=== PATIENT | male | born 1950 | race Caucasian/White ===

== ENCOUNTER → 2017-12-27 07:22 | Outpatient (CLI) | payer MEDICARE, BC, SELFPAY ==
[2017-12-27 08:57] LABS: Add Manual Diff / Slide Review NO; Basophils Percent Auto 0.6 % (0-2); Eosinophils Percent Auto 1.6 % (2-4); Hematocrit 45.7 % (41-53); Hemoglobin 15.9 g/dL (13.5-17.5); Lymphocytes Percent Auto 33.6 % (25-40); Mean Corpuscular HGB Conc 34.7 % (30-36); Mean Corpuscular Hemoglobin 31.5 PG (26-34); Mean Corpuscular Volume 90.7 fL (80-100); Monocytes Percent Auto 8.2 % (3-14); Neutrophils Absolute Auto 3500 /uL (3000-5900); Platelet Count 205 X10^3/uL (150-400); Red Blood Cell Count 5.04 X10^6/uL (4.5-5.9); Red Cell Distribution Width 13.1 % (11.6-14.8); White Blood Cell Count 6.3 X10^3/uL (4.5-11.0)
[2017-12-27 09:27] LABS: Hemoglobin A1C% w Est Avg Glu 5.3 % (4.0-6.0)
[2017-12-27 09:34] LABS: Cholesterol 191 mg/dL (140-199); HDL Cholesterol 33 mg/dL (40-60); LDL Cholesterol Calculated 137 mg/dL (<100); Triglycerides 103 mg/dL (35-150)
[2017-12-27 10:06] LABS: Thyroid Stimulating Hormone 5.42 uIU/mL (0.47-4.68)
== END ==
PROVIDERS: PCP Family Medicine; Visit Provider Family Medicine
DX: E78.2 Mixed hyperlipidemia (principal); I10 Essential (primary) hypertension; Z13.1 Encounter for screening for diabetes mellitus; E11.22 Type 2 diabetes mellitus with diabetic chronic kidney disease
CPT/HCPCS: 36415; 80061; 83036; 84443; 85025

== ENCOUNTER → 2018-02-13 11:40 | Outpatient (CLI) | payer MEDICARE, BC, SELFPAY ==
[2018-02-13 13:30] LABS: Blood Urea Nitrogen 16 mg/dL (9-20); Calcium 9.1 mg/dL (8.4-10.2); Carbon Dioxide 32 mmol/L (22-32); Chloride 101 mmol/L (98-107); Estimated Glomerular Filt Rate > 60.0 mL/min (>60); Glucose 82 mg/dL (80-110); HEMOLYSIS < 15 (0-50); Potassium 4.7 mmol/L (3.4-5.1); Sodium 143 mmol/L (137-145)
== END ==
PROVIDERS: PCP Family Medicine; Visit Provider Family Medicine
DX: I10 Essential (primary) hypertension (principal)
CPT/HCPCS: 36415; 80048

== ENCOUNTER → 2019-05-17 07:00 | Outpatient (CLI) | payer MEDICARE, BC, SELFPAY ==
[2019-05-17 08:15] LABS: Add Manual Diff / Slide Review NO; Basophils Absolute Auto 0 /uL (0-100); Basophils Percent Auto 0.6 % (0-2); Eosinophils Absolute Auto 100 /uL (0-450); Hematocrit 44.8 % (41-53); Hemoglobin 15.3 g/dL (13.5-17.5); Lymphocytes Absolute Auto 2100 /uL (1100-4500); Lymphocytes Percent Auto 35.2 % (25-40); Mean Corpuscular HGB Conc 34.2 % (30-36); Mean Corpuscular Hemoglobin 31.5 PG (26-34); Mean Corpuscular Volume 92.1 fL (80-100); Monocytes Absolute Auto 500 /uL (0-900); Monocytes Percent Auto 8.5 % (3-14); Neutrophils Absolute Auto 3200 /uL (1500-7000); Neutrophils Percent Auto 53.7 % (50-75); Platelet Count 217 X10^3/uL (150-400); Red Blood Cell Count 4.87 X10^6/uL (4.5-5.9); Red Cell Distribution Width 12.7 % (11.6-14.8)
[2019-05-17 08:33] LABS: Alanine Aminotransferase 22 IU/L (<50); Albumin 3.9 g/dL (3.5-5.0); Albumin Globulin Ratio 1.1 (1.0-2.8); Alkaline Phosphatase 62 U/L (38-126); Aspartate Aminotransferase 30 IU/L (17-59); BUN Creatinine Ratio 16.7 (6-22); Bilirubin Total 0.8 mg/dL (0.2-1.3); Blood Urea Nitrogen 15 mg/dL (9-20); Calcium 8.9 mg/dL (8.4-10.2); Carbon Dioxide 29 mmol/L (22-32); Chloride 103 mmol/L (98-107); Cholesterol 210 mg/dL (140-199); Estimated Glomerular Filt Rate > 60.0 mL/min (>60); Globulin 3.4 g/dL (1.7-4.1); Glucose 90 mg/dL (80-110); HDL Cholesterol 24 mg/dL (40-60); HEMOLYSIS < 15 (0-50); LDL Cholesterol Calculated 145 mg/dL (<100); Potassium 4.6 mmol/L (3.4-5.1); Sodium 140 mmol/L (137-145); Total Protein 7.3 g/dL (6.3-8.2); Triglycerides 207 mg/dL (35-150)
--- NOTE | 2019-05-17 08:49 | DI.RAD.S_ITS ---
PROCEDURE: XR LUMBAR SPINE MIN 4V INDICATIONS: left radiculopathy, stiffness TECHNIQUE: 5 views of the lumbar spine acquired. COMPARISON: None. FINDINGS: Bones: 5 nonrib-bearing vertebrae are present. There is normal bony alignment. No vertebral body compression fractures. No suspicious bony lesions. Multilevel disc degeneration, severe at L5-S1 level. Moderate L5-S1 facet joint arthropathy. No pars defects. Soft tissues: Overlying bowel gas pattern is normal. No suspicious soft tissue calcifications. Vascular calcifications indicate atherosclerosis. IMPRESSION: 1. Multilevel disc degeneration, severe at the L5-S1 level. 2. Moderate facet joint arthropathy at L5-S1 level. Dictated by: Robin Mosley [facility] Interpreted: Barrington Cedillo MD on 05/17/2019 at 9:47 Approved by: Barrington Cedillo M.D. on 05/17/2019 at 11:22
[2019-05-17 09:24] LABS: TSH w/ Reflex to FT4 3.95 uIU/mL (0.47-4.68)
[2019-05-20 14:25] LABS: Fecal Immunochemical Test NOT DETECTED (NOT DETECTED)
== END ==
PROVIDERS: PCP Family Medicine; Referring Provider Family Medicine; Visit Provider Family Medicine
DX: Z12.11 Encounter for screening for malignant neoplasm of colon (principal); M54.16 Radiculopathy, lumbar region; Z12.5 Encounter for screening for malignant neoplasm of prostate; R07.9 Chest pain, unspecified
CPT/HCPCS: 36415; 72110; 80053; 80061; 82274; 84443; 85025; G0103

== ENCOUNTER → 2019-06-07 07:07 | Outpatient (CLI) | payer MEDICARE, BC, SELFPAY ==
--- NOTE | 2019-06-07 08:15 | PM.TREADMILL ---
Cardiac Stress Test Report Referral & Results Date Patient Seen: 06/07/19 Time Patient Seen: 08:00 Requesting provider: Deysi Thompson Indication: Angina Rest ECG: Normal sinus rhythm Procedure Note: Today following both written and verbal informed consent, the patient was exercised according to a standard Markos protocol. The patient exercised for a total of 9 minutes 29 seconds achieving a maximum heart rate of 140 for. Patient's maximum systolic blood pressure was 185. This was an estimated 10.1 METs. Normal hemodynamic response to exercise. No signs or symptoms of angina. Excellent exercise capacity; JUVE-25% on active scale. Diffuse [address] deviations that resolved rapidly with rest. Impression: Intermediate probability for ischemia. Grant treadmill score of -5 is associated with a 90% 5 year survival rate from cardiovascular causes. Myocardial perfusion study may be indicated if there is ongoing clinical concern for ASCVD. Please note: Actual ECG tracings can be found in the PACS system.
== END ==
PROVIDERS: PCP Family Medicine; Referring Provider Family Medicine; Visit Provider Family Medicine
DX: I20.9 Angina pectoris, unspecified (principal); R07.9 Chest pain, unspecified
CPT/HCPCS: 93016; 93017; 93018

== ENCOUNTER → 2019-06-19 07:19 | Outpatient (CLI) | payer MEDICARE, BC, SELFPAY ==
--- NOTE | 2019-06-19 07:22 | DI.NM.S_ITS ---
PROCEDURE: NM PHIL PERF SPECT REST & STR Rest and exercise myocardial perfusion SPECT with gated imaging and ejection fraction RADIOPHARMACEUTICAL: 23.8 mCi Tc-99m sestamibi IV at rest and 27.0 mCi Tc-99m sestamibi IV at peak exercise. A two day-protocol was performed. INDICATIONS: abnormal stress test, family hx of bypass surgery TECHNIQUE: Radiopharmaceutical was injected at peak stress test, and also at rest. SPECT images were obtained. SPECT myocardial perfusion images were displayed in short axis, horizontal long axis, and vertical long axis views. Gated images were reviewed using [employer] software. COMPARISON: None. CARDIAC STRESS: A standard Markos treadmill exercise tolerance test was performed by the patient under the supervision of an attending staff. The patient exercised for 10 minutes and 1 seconds; functional aerobic impairment (JUVE) is -20%. Hemodynamic data: There is normal blood pressure and heart rate response to exercise stress. Patient achieved 108% of maximum predicted heart rate at peak exercise. Symptoms: Patient denied chest pain during exercise. EKG: No diagnostic EKG changes of ischemia; no ectopy. FINDINGS: Raw data: There is good myocardial labeling by radiotracer. No significant motion artifacts. Yiff-nz-gbwna ratio is 0.43 (normal is less than 0.38 for sestamibi tracer, and less than 0.50 for thallium tracer). Left ventricle function: Gated images demonstrate normal left ventricle wall thickening. No segmental wall motion abnormality. No transient ischemic dilation; TID is 0.89 (normal less than 1.3). The left ventricle resting end-diastolic volume is 95 mL. Left ventricle stress ejection fraction is 85%; normal values are above 45%. Myocardial perfusion: There is normal distribution of activity in the left and right ventricular myocardium. No fixed or reversible perfusion defects. IMPRESSION: Low risk, normal treadmill nuclear stress test. Elevated wvjh-np-nesru ratio at 0.43; consider echo to rule out significant valvular disease. 1) No perfusion evidence of ischemia or infarction. 2) Normal left ventricular size, wall motion, and systolic function (EF post stress 85%). 3) Elevated hiui-gm-tblvl ratio of 0.43. Consider Echo to rule out significant valvular disease. 4) No ECG evidence of ischemia or infarction. 5) No angina during the study. 6) Good exercise tolerance (12.8 METs, JUVE -20%). Target heart rate achieved. Appropriate hemodynamic response to exercise. 7) No prior nuclear stress test available for comparison. Dictated by: Samuel Healy MD on 06/20/2019 at 13:04 Approved by: Samuel Healy MD on 06/20/2019 at 13:09
--- NOTE | 2019-06-19 08:22 | PM.TREADMILL ---
Cardiac Stress Test Report Referral & Results Date Patient Seen: 06/19/19 Time Patient Seen: 08:00 Requesting provider: Deysi Thompson Indication: Abnormal stress test Rest ECG: Normal sinus rhythm Procedure Note: Today following both written and verbal informed consent the patient was exercised according to a standard Markos protocol patient went for a total of 10 minutes achieving a maximum heart rate of 163 maximum systolic blood pressure of 190 for. This is approximately 12.8 METs. Exercise was terminated at this point because of fatigue. Patient was also given Cardiolite through a previously started Hep-Lock IV by the nuclear chemistry technician approximately 1 minute prior to the cessation of exercise. Normal hemodynamic response to exercise. No signs or symptoms of angina. Diffuse ST deviations in multiple leads that resolved rapidly with rest. No change in rhythm. Excellent exercise capacity (JUVE-20%) and similar performance to last time. Impression: Similar testing to last time. Will await perfusion imaging. Please note: Actual ECG tracings can be found in the PACS system.
== END ==
PROVIDERS: PCP Family Medicine; Referring Provider Family Medicine; Visit Provider Family Medicine
DX: R94.39 Abnormal result of other cardiovascular function study (principal); R07.9 Chest pain, unspecified; I10 Essential (primary) hypertension; Z82.49 Family history of ischemic heart disease and other diseases of the circulatory system
CPT/HCPCS: 78452; 93016; 93017; 93018; A9502

== ENCOUNTER → 2019-07-04 13:39 | Outpatient (CLI) | payer MEDICARE, BC, SELFPAY ==
--- NOTE | 2019-07-04 13:40 | DI.ECHO.S_ITS ---
[place] [facility]---------+ [facility] +---------+ : : [address] : : : : [id number] : : : : Phone: [phone]+ Echocardiogram Report + + :Name: KELSI CHAMBERLAIN Study Date: 07/04/2019 Height: 68 in : :[facility] Weight: 185 lb : : Gender: Male BSA: 2.0 m2 : :: 1950 Age: 68 yrs BP: 138/84 mmHg: :Reason For Study: Chest pain : : Performed By: Roxanne López : :Referring: Machelle Aas : + + Interpretation Summary The left ventricle is normal in size and wall thickness. Left ventricular systolic function is normal without focal wall motion abnormalities. The ejection fraction is estimated to be 60-65%. Diastolic parameters suggest probable normal left ventricular diastolic function and normal filling pressures. The right ventricle is normal in size and function. The right ventricular systolic pressure is estimated to be at least 18 mmHg based on an estimated right atrial pressure of 3 mm Hg. Both atria are normal in size. There is mild mitral regurgitation. There is no other significant valvular heart disease. The aortic root is borderline dilated. The ascending aorta is normal in size. The aortic arch is mildly enlarged. Procedure: A two-dimensional transthoracic echocardiogram with color flow and Doppler was performed. The study quality was technically adequate. There is no prior echocardiogram noted for this patient. The patient was in sinus bradycardia with heart rates between 49-54 bpm during the exam. Left Ventricle: The left ventricle is normal in size and wall thickness. Proximal septal thickening is noted. A false chord is noted (normal variant). Left ventricular systolic function is normal without focal wall motion abnormalities. The ejection fraction is estimated to be 60-65%. Diastolic parameters suggest probable normal left ventricular diastolic function and normal filling pressures. Right Ventricle: The right ventricle is normal in size and function. Atria: Both atria are normal in size. There is no Doppler evidence for an interatrial shunt. Mitral Valve: The mitral valve is normal in structure and function. The mitral valve leaflets are mildly calcified. There is mild mitral regurgitation. Aortic Valve: The aortic valve is trileaflet. The aortic valve opens well. There is no aortic valve stenosis. There is trace aortic regurgitation. Tricuspid Valve: The tricuspid valve is normal in structure and function. There is mild tricuspid regurgitation. The right ventricular systolic pressure is estimated to be at least 18 mmHg based on an estimated right atrial pressure of 3 mm Hg. Pulmonic Valve: The pulmonic valve is normal in structure and function. There is trace pulmonic regurgitation. There is no other significant valvular heart disease. Great Vessels: The aortic root is borderline dilated. The ascending aorta is normal in size. The aortic arch is mildly enlarged. The IVC is of normal diameter and collapses greater than 50% with a sniff. This suggests a low right atrial pressure of 3 mm Hg. Pericardium/ Pleura There is no pericardial effusion. There is no pleural effusion. MMode/2D Measurements & Calculations LVIDd: 4.6 cm LVOT diam: 2.1 cm LVIDs: 2.9 cm Ao root diam: 3.7 cm FS: 38.2 % asc Aorta Diam: 3.1 cm EPSS: 0.37 cm Ao Arch Diam (Prox Trans): 3.5 cm IVSd: 1.0 cm LVPWd: 0.76 cm LV goyal. diameter/BSA (cm/m^2): 2.3 LV sys. diameter/BSA (cm/m^2): 1.4 LA A2 area: 17.4 cm2 RA long axis: 4.7 cm LA A4 area: 11.7 cm2 RA area: 11.8 cm2 LA length (vol): 4.3 cm RA vol: 25.3 ml LA vol: 40.1 ml RA : 12.8 ml/m2 LA vol index: 20.3 ml/m2 IVC diam: 2.0 cm RVD1 (basal): 3.9 cm TAPSE: 2.7 cm Doppler Measurements & Calculations Ao V2 max: 145.4 cm/sec LVOT Max Mauri: 146.0 cm/sec Ao V2 mean: 90.0 cm/sec LV V1 max P.5 mmHg Ao max P.5 mmHg LV V1 VTI: 32.0 cm Ao mean P.9 mmHg GLADYS(I,D): 3.7 cm2 Ao V2 VTI: 30.7 cm GLADYS(V,D): 3.5 cm2 sev ratio: 1.0 GLADYS indexed to BSA (cm^2/m^2): 1.8 MV E max mauri: 83.0 cm/sec TR max mauri: 183.7 cm/sec MV A max mauri: 77.1 cm/sec TR max P.4 mmHg MV E/A: 1.1 PA V2 max: 80.8 cm/sec Med Peak E' Mauri: 6.9 cm/sec PA V2 mean: 55.1 cm/sec E/E' med: 12.0 PA mean P.4 mmHg Lat Peak E' Mauri: 9.5 cm/sec PA Accel Time: 0.12 sec E/E' lat: 8.8 E/e' average: 10.4 MV dec time: 0.22 sec MV P1/2t: 70.7 msec MV P1/2t max mauri: 83.5 cm/sec SV(LVOT): 112.3 ml MVA(P1/2t): 3.1 cm2 Reading Physician:06:14 PM
== END ==
PROVIDERS: PCP Family Medicine; Referring Provider Family Medicine; Visit Provider Family Medicine
DX: I08.1 Rheumatic disorders of both mitral and tricuspid valves (principal); R07.9 Chest pain, unspecified; I77.89 Other specified disorders of arteries and arterioles
CPT/HCPCS: 93306

== ENCOUNTER → 2020-06-17 10:55 | Outpatient (CLI) | payer MEDICARE, BC, SELFPAY ==
[2020-06-17] MEDS: COVID-19 VACC #1, MRNA(MOD) 100 MCG/0.5 ML VIAL IM (11:03)
== END ==
PROVIDERS: PCP Family Medicine; Visit Provider Internal Medicine
DX: Z23 Encounter for immunization (principal)
CPT/HCPCS: 0011A; 91301

== ENCOUNTER → 2020-07-15 10:16 | Outpatient (CLI) | payer MEDICARE, BC, SELFPAY ==
[2020-07-15] MEDS: COVID-19 VACC #2, MRNA(MOD) 100 MCG/0.5 ML VIAL IM (10:24)
== END ==
PROVIDERS: PCP Family Medicine; Visit Provider Internal Medicine
DX: Z23 Encounter for immunization (principal)
CPT/HCPCS: 0012A; 91301

== ENCOUNTER → 2020-09-22 11:01 | Outpatient (CLI) | payer MEDICARE, BC, SELFPAY ==
[2020-09-23 09:49] LABS: Fecal Immunochemical Test Positive (Negative)
== END ==
PROVIDERS: PCP Family Medicine; Referring Provider Family Medicine; Visit Provider Family Medicine
DX: Z12.11 Encounter for screening for malignant neoplasm of colon (principal)
CPT/HCPCS: 82274

== ENCOUNTER → 2020-09-23 07:06 | Outpatient (CLI) | payer MEDICARE, BC, SELFPAY ==
[2020-09-23 08:49] LABS: Alanine Aminotransferase 27 IU/L (<50); Albumin 3.8 g/dL (3.5-5.0); Albumin Globulin Ratio 1.2 (1.0-2.8); Alkaline Phosphatase 66 U/L (38-126); Aspartate Aminotransferase 37 IU/L (17-59); BUN Creatinine Ratio 17.6 (6-22); Bilirubin Total 0.9 mg/dL (0.2-1.3); Blood Urea Nitrogen 16 mg/dL (9-20); Calcium 9.4 mg/dL (8.4-10.2); Carbon Dioxide 27 mmol/L (22-32); Chloride 104 mmol/L (98-107); Cholesterol 219 mg/dL (140-199); Estimated Glomerular Filt Rate > 60.0 mL/min (>60); Globulin 3.3 g/dL (1.7-4.1); Glucose 94 mg/dL (80-110); HDL Cholesterol 36 mg/dL (40-60); HEMOLYSIS < 15 (0-50); LDL Cholesterol Calculated 158 mg/dL (<100); Potassium 4.3 mmol/L (3.4-5.1); Sodium 138 mmol/L (137-145); Total Protein 7.1 g/dL (6.3-8.2); Triglycerides 125 mg/dL (35-150)
[2020-09-23 09:22] LABS: Prostate Specific Antigen 3.97 ng/mL (0.10-4.00)
== END ==
PROVIDERS: PCP Family Medicine; Referring Provider Family Medicine; Visit Provider Family Medicine
DX: I10 Essential (primary) hypertension (principal); Z12.5 Encounter for screening for malignant neoplasm of prostate; E78.2 Mixed hyperlipidemia
CPT/HCPCS: 36415; 80053; 80061; 84153; G0103

== ENCOUNTER → 2020-09-25 11:31 | Outpatient (CLI) | payer MEDICARE, BC, SELFPAY ==
--- NOTE | 2020-09-25 11:33 | DI.RAD.S_ITS ---
PROCEDURE: XR CHEST 2V INDICATIONS: cough TECHNIQUE: 2 views of the chest were acquired. COMPARISON: None. FINDINGS: Surgical changes and devices: None. Lungs and pleura: Lungs are clear. No pleural effusions or pneumothorax. Mediastinum: Mediastinal contours are normal. Heart size is normal. Bones and chest wall: No suspicious bony abnormalities. Soft tissues appear unremarkable. IMPRESSION: No acute pulmonary process. Dictated by: Linda Mitchell M.D. on 09/25/2020 at 11:46 Approved by: Linda Mitchell M.D. on 09/25/2020 at 11:46
== END ==
PROVIDERS: PCP Family Medicine; Referring Provider Physician Assistant; Visit Provider Physician Assistant
DX: R05 Cough (principal); R06.02 Shortness of breath; J02.9 Acute pharyngitis, unspecified
CPT/HCPCS: 71046; 87635

== ENCOUNTER → 2020-09-25 12:30 | Outpatient (CLI) | payer MEDICARE, BC, SELFPAY ==
[2020-09-25 13:01] LABS: COVID19 -Nasal RAPID Negative (Negative)
== END ==
PROVIDERS: PCP Family Medicine; Visit Provider Physician Assistant
DX: R05 Cough (principal); R06.02 Shortness of breath; J02.9 Acute pharyngitis, unspecified
CPT/HCPCS: 87635

== ENCOUNTER → 2020-10-14 10:21 | Outpatient (CLI) | payer MEDICARE, BC, SELFPAY ==
[2020-10-14 11:00] LABS: COVID19 -Nasal RAPID Negative (Negative)
== END ==
PROVIDERS: PCP Family Medicine; Visit Provider Surgery
DX: Z20.822 Contact with and (suspected) exposure to COVID-19 (principal)
CPT/HCPCS: 87635; C9803

== ENCOUNTER 2020-10-15 11:56 | Day surgery (SDC) | payer MEDICARE, BC, SELFPAY ==
[2020-10-15] VITALS (7 sets, daily range): BP systolic 92–147; BP diastolic 49–75; PULSE 50–64; RESP 10–16; TEMP 36.4–36.6; O2SAT 92–100; BMI 27.3
--- NOTE | 2020-10-15 | PATH_ITS ---
[facility] Accession Number: [id number] . 01 Material submitted: . PART A: cecum - CECAL POLYP PART B: colon - POLYP AT 15CM PART C: rectum - RECTAL POLYP AT 5CM . 02 Diagnosis: A. Cecum, Polyp, Biopsy: Inflammatory polyp. . B. Colon, Polyp at 15 cm, Biopsy: Tubular adenoma. . C. Rectum, Polyp at 5 cm, Biopsy: Tubular adenoma. MRV 10/20/2020 0930 Local . 02 Electronically signed: . Teresa Michel MD, Pathologist NPI- [id number] . 01 Gross description: . Part A: CECAL POLYP: Received in formalin is 1 fragment(s) of payton, soft tissue measuring 0.4 x 0.4 x 0.3 cm submitted entirely in 1 cassette(s) Part B: POLYP AT 15CM: Received in formalin are 2 fragment(s) of payton, soft tissue measuring 0.5 x 0.4 x 0.3 cm to 0.3 x 0.2 x 0.2 cm submitted entirely in 1 cassette(s) Part C: RECTAL POLYP AT 5CM: Received in formalin are 3 fragment(s) of payton, soft tissue measuring 0.5 x 0.4 x 0.3 cm to 0.4 x 0.4 x 0.3 cm submitted entirely in 1 cassette(s) /GLADYS 10/16/2020 0318 Local . 02 Pathologist provided ICD-10: D12.6, D12.8 . 02 CPT . 831472, 015985, 594609 Performed at: 01 [facility] [address] [place] [address] [address], [place], [place] [id number] MD Nick Acevedo MD Phone: [phone] Performed at: 02 [facility] [address] [place] [id number] MD Teresa Michel MD Phone: [phone]
--- NOTE | 2020-10-15 12:55 | PM.HP.1 ---
History of Present Illness History of Present Illness Date Patient Seen: 10/15/20 Time Patient Seen: 12:55 Chief complaint: [facility] [place] Narrative: Had a positive FIT test. Last colonoscopy >10 years, no family history of colon cancer. Does have hemorrhoids. Patient History Medical History Hearing loss Hemorrhoid Hypertension Left lumbar radiculopathy Plantar fasciitis Skin cancer Surgical History History of inguinal hernia repair (~2000) History of tonsillectomy Status post amputation of extremity Status post hemorrhoidectomy (~1994) Family & Social History Family History Father Heart disease Mother Skin cancer Social History: household members spouse lives independently Yes Tobacco & Substance use: Smoking Status Never smoker alcohol intake never alcohol intake frequency holiday/special occasion Substance Use Type does not use Meds Home Medications and Allergies Home Medications Medication Instructions Recorded Confirmed Type cholecalciferol (vitamin D3) 25 25 mcg PO DAILY 09/22/20 10/15/20 History mcg (1,000 unit) capsule lisinopril 5 mg tablet 5 mg PO DAILY #90 tab 09/22/20 10/15/20 Rx albuterol sulfate 90 mcg/actuation 1 inh INHALATION Q4-6H PRN #18 g 09/25/20 10/15/20 Rx aerosol inhaler Allergies Allergy/AdvReac Type Severity Reaction Status Date / Time Sulfa (Sulfonamide Allergy Unknown Verified 09/25/20 12:23 Antibiotics) [SULFA (SULFONAMIDE ANTIBIOTICS)] Review of Systems Review of Systems ROS: Yes All systems reviewed with the patient and are negative except as otherwise documented Exam Vital Signs (past 8 hours): - 10/15/20 12:34 Temperature 97.8 F Pulse Rate 64 Respiratory Rate 16 Blood Pressure 147/75 H Pulse Oximetry 100 Oxygen Delivery Method Room Air Oxygen Flow Rate 0 Const General: cooperative and healthy appearing Nutritional Appearance: average body habitus Orientation: alert and oriented x3 HENMT Head: normal to inspection Face and sinus: normal facial exam Eyes Sclera: sclerae normal Neck Neck: trachea midline Chest Chest: normal inspection of the chest Resp Effort & Inspection: normal respiratory effort and able to speak in complete sentences Cardio Rate: regular rate Rhythm: regular rhythm GI Inspection: normal to inspection Palpation: soft Skin General: no rashes or lesions noted Neuro General: patient alert, patient awake and patient oriented x3 Psych Appearance: grossly normal Judgment: judgment good Assessment & Plan Assessment & Plan narrative: positive Fit test. Plan: Colonoscopy with moderate sedation. COVID-19 COVID-19 status: Negative Time Spent With Patient Time with patient: less than 15 minutes
[2020-10-15] MEDS: LACTATED RINGERS 1,000 ML 42 ML IV (12:57)
[2020-10-15] MEDS: fentaNYL 250 MCG/5 ML INJ IV (13:15)
[2020-10-15] MEDS: MIDAZOLAM 5 MG/5 ML VIAL IV (13:37)
--- NOTE | 2020-10-15 13:37 | PM.OP.ENDO ---
Operative Date/Time/Diagnoses Date of procedure: 10/15/20 Time of procedure: 13:37 Pre-op diagnosis: positive FIT Post-op diagnosis: same Procedure & Clinicians Study performed: Colonoscopy with cold forceps and hot snare polypectomies Same procedure as scheduled: Yes Indications: fit test positive Surgeon: Skye Contreras Procedure Notes SCOAP/Timeout: Done Procedure in detail: Prep diagnosis: Positive fit test Postop diagnosis: Same Operative procedure: Colonoscopy with cold forceps and hot snare polypectomies using moderate sedation Surgeon: Dr. Ben MD Anesthetic: Fentanyl 100 mg, Versed 8 mg Findings: Single small 3 mm polyp in the cecum adenomatous in appearance. Taken with cold forceps. Polyp at 15 cm approximately 1.5 cm in size taken with hot snare. Polyp at 5 cm 0.7 cm in size taken with hot snare External hemorrhoid tags Procedure: Patient placed in lateral position. Rectal exam performed showing normal tone. Hemorrhoidal tissue but no gross mass. Scope was inserted into the rectum and advanced to the ileocecal valve with minimal difficulty. He had excellent bowel prep. Insufflation and extraction of the scope and the above findings. Retroflex was included in the rectum. Impression: Small sessile polyp 3 mm in the cecum, 1.5 cm polyp in the sigmoid colon at 15 cm from the anal verge. And 0.7 cm polyp at 5 cm from the anal verge. Plan: Repeat colonoscopy in 3 years. Pathology report will be called to the patient. Scope withdrawal time: Twelve Sedation minutes: 29 Findings: polyp ((1) 3 mm polyp cecum, (2) 1.5cm polyp at 15cm, (3) 0.7cm polyp at 5 cm ) Specimen(s): other (as above) Complications: none Impression: cecal and rectosigmoid polyps for total of 3. Large severe diverticulosis of sigmoid colon and tadeo diverticulosis Post-procedure Recommendations: Colonscopy in 3 years Plan for aftercare: Home Follow up: as needed Disposition: PACU
== END 2020-10-15 15:04 | disposition home or self-care (01) ==
PROVIDERS: PCP Family Medicine; Referring Provider Surgery; Visit Provider Surgery
PROC: 0DJD8ZZ Inspection of Lower Intestinal Tract, Via Natural or Artificial Opening Endoscopic (ICD-10-PCS; CPT 45378; principal; 2020-10-15 13:00)
DX: R19.5 Other fecal abnormalities (principal); K64.9 Unspecified hemorrhoids; I10 Essential (primary) hypertension; D12.6 Benign neoplasm of colon, unspecified; D12.8 Benign neoplasm of rectum
CPT/HCPCS: 45385; 45380; 99152; 99153; J2250; J3010

== ENCOUNTER → 2021-10-22 11:46 | Outpatient (CLI) | payer MEDICARE, BC, SELFPAY ==
--- NOTE | 2021-10-22 11:48 | DI.RAD.S_ITS ---
PROCEDURE: XR CHEST 2V INDICATIONS: persistent cough TECHNIQUE: 2 views of the chest were acquired. COMPARISON: [facility], CR, XR CHEST 2V, 09/25/2020, 11:32. FINDINGS: Surgical changes and devices: None. Lungs and pleura: Lungs are clear. No pleural effusions or pneumothorax. Mediastinum: Mediastinal contours are normal. Heart size is normal. Bones and chest wall: No suspicious bony abnormalities. Soft tissues appear unremarkable. IMPRESSION: Stable radiographic evaluation of the chest without acute cardiopulmonary abnormalities or focal airspace disease. Dictated by: José Luis Gabriel M.D. on 10/22/2021 at 12:57 Approved by: José Luis Gabriel M.D. on 10/22/2021 at 12:57
[2021-10-22 13:26] LABS: Add Manual Diff / Slide Review NO; Basophils Absolute Auto 0 /uL (0-100); Basophils Percent Auto 0.5 % (0-2); Eosinophils Absolute Auto 200 /uL (0-450); Eosinophils Percent Auto 3.4 % (2-4); Hematocrit 41.1 % (41-53); Hemoglobin 14.1 g/dL (13.5-17.5); Lymphocytes Absolute Auto 1800 /uL (1100-4500); Lymphocytes Percent Auto 27.8 % (25-40); Mean Corpuscular HGB Conc 34.3 % (30-36); Mean Corpuscular Hemoglobin 31.8 PG (26-34); Mean Corpuscular Volume 92.7 fL (80-100); Monocytes Absolute Auto 500 /uL (0-900); Monocytes Percent Auto 7.8 % (3-14); Neutrophils Absolute Auto 3900 /uL (1500-7000); Neutrophils Percent Auto 60.5 % (50-75); Platelet Count 221 X10^3/uL (150-400); Red Blood Cell Count 4.43 X10^6/uL (4.5-5.9); Red Cell Distribution Width 13.4 % (11.6-14.8); White Blood Cell Count 6.5 X10^3/uL (4.5-11.0)
[2021-10-22 13:39] LABS: Alanine Aminotransferase 27 IU/L (<50); Albumin 3.9 g/dL (3.5-5.0); Albumin Globulin Ratio 1.3 (1.0-2.8); Alkaline Phosphatase 59 U/L (38-126); Aspartate Aminotransferase 35 IU/L (17-59); BUN Creatinine Ratio 15.3 (6-22); Bilirubin Total 0.7 mg/dL (0.2-1.3); Blood Urea Nitrogen 13 mg/dL (9-20); Calcium 9.1 mg/dL (8.4-10.2); Carbon Dioxide 28 mmol/L (22-32); Chloride 104 mmol/L (98-107); Estimated Glomerular Filt Rate > 60 mL/min (>60); Glucose 83 mg/dL (80-110); HEMOLYSIS < 15 (0-50); Potassium 4.6 mmol/L (3.4-5.1); Sodium 137 mmol/L (137-145); Total Protein 6.9 g/dL (6.3-8.2)
[2021-10-22 14:10] LABS: Prostate Specific Antigen Scrn 4.41 ng/mL (0.1-4.0)
== END ==
PROVIDERS: PCP Family Medicine; Referring Provider Family Medicine; Visit Provider Family Medicine
DX: I10 Essential (primary) hypertension (principal); Z12.5 Encounter for screening for malignant neoplasm of prostate; R05.9 Cough, unspecified
CPT/HCPCS: 36415; 71046; 80053; 85025; G0103

== ENCOUNTER → 2021-11-24 08:50 | Outpatient (CLI) | payer MEDICARE, BC, SELFPAY ==
[2021-11-25 08:09] LABS: PSA Free % 26.2 % (.); PSA, Total 4.7 ng/mL (0.0-4.0)
== END ==
PROVIDERS: PCP Family Medicine; Referring Provider Family Medicine; Visit Provider Family Medicine
DX: Z12.5 Encounter for screening for malignant neoplasm of prostate (principal)
CPT/HCPCS: 36415; 84153; 84154

== ENCOUNTER → 2022-01-20 14:31 | Outpatient (CLI) | payer MEDICARE, BC, SELFPAY ==
[2022-01-23 09:29] LABS: PSA, Total 5.5 ng/mL (0.0-4.0)
== END ==
PROVIDERS: PCP Family Medicine; Referring Provider Family Medicine; Visit Provider Family Medicine
DX: R97.20 Elevated prostate specific antigen [PSA] (principal)
CPT/HCPCS: 36415; 84153; 84154

== ENCOUNTER → 2022-11-08 08:03 | Outpatient (CLI) | payer MEDICARE, BC, SELFPAY ==
[2022-11-08 10:14] LABS: Alanine Aminotransferase 28 IU/L (<50); Albumin 3.8 g/dL (3.5-5.0); Albumin Globulin Ratio 1.2 (1.0-2.8); Alkaline Phosphatase 61 U/L (38-126); Aspartate Aminotransferase 31 IU/L (17-59); BUN Creatinine Ratio 15.8 (6-22); Bilirubin Total 0.8 mg/dL (0.2-1.3); Blood Urea Nitrogen 16 mg/dL (9-20); Calcium 8.9 mg/dL (8.4-10.2); Carbon Dioxide 30 mmol/L (22-32); Chloride 103 mmol/L (98-107); Cholesterol 236 mg/dL (140-199); Estimated Glomerular Filt Rate > 60 mL/min (>60); Globulin 3.1 g/dL (1.7-4.1); Glucose 88 mg/dL (80-110); HDL Cholesterol 33 mg/dL (40-60); HEMOLYSIS < 15 (0-50); LDL Cholesterol Calculated 176 mg/dL (<100); Potassium 4.5 mmol/L (3.4-5.1); Sodium 137 mmol/L (137-145); Total Protein 6.9 g/dL (6.3-8.2); Triglycerides 137 mg/dL (35-150)
[2022-11-08 10:43] LABS: Prostate Specific Antigen Scrn 3.59 ng/mL (0.1-4.0)
== END ==
PROVIDERS: PCP Family Medicine; Referring Provider Family Medicine; Visit Provider Family Medicine
DX: Z00.00 Encounter for general adult medical examination without abnormal findings (principal); E78.2 Mixed hyperlipidemia; Z12.5 Encounter for screening for malignant neoplasm of prostate; I10 Essential (primary) hypertension
CPT/HCPCS: 36415; 80053; 80061; G0103

== ENCOUNTER → 2023-02-06 06:59 | Outpatient (CLI) | payer MEDICARE, BC, SELFPAY ==
[2023-02-06 09:11] LABS: Prostate Specific Antigen 3.71 ng/mL (0.10-4.00)
== END ==
PROVIDERS: PCP Family Medicine; Referring Provider Urology; Visit Provider Urology
DX: R97.20 Elevated prostate specific antigen [PSA] (principal)
CPT/HCPCS: 36415; 84153

== ENCOUNTER → 2023-02-20 13:33 | Outpatient (CLI) | payer MEDICARE, BC, SELFPAY ==
[2023-02-20 14:19] LABS: Add Manual Diff / Slide Review NO; Basophils Absolute Auto 100 /uL (0-100); Basophils Percent Auto 0.7 % (0-2); Eosinophils Absolute Auto 600 /uL (0-450); Eosinophils Percent Auto 7.4 % (2-4); Hematocrit 42.9 % (41-53); Hemoglobin 14.8 g/dL (13.5-17.5); Lymphocytes Absolute Auto 1900 /uL (1100-4500); Lymphocytes Percent Auto 24.6 % (25-40); Mean Corpuscular HGB Conc 34.5 % (30-36); Mean Corpuscular Hemoglobin 31.4 PG (26-34); Mean Corpuscular Volume 91.1 fL (80-100); Monocytes Absolute Auto 600 /uL (0-900); Monocytes Percent Auto 7.1 % (3-14); Neutrophils Absolute Auto 4700 /uL (1500-7000); Neutrophils Percent Auto 60.2 % (50-75); Platelet Count 209 X10^3/uL (150-400); Red Blood Cell Count 4.71 X10^6/uL (4.5-5.9); Red Cell Distribution Width 12.8 % (11.6-14.8); White Blood Cell Count 7.9 X10^3/uL (4.5-11.0)
[2023-02-20 14:43] LABS: Alanine Aminotransferase 30 IU/L (<50); Albumin Globulin Ratio 1.2 (1.0-2.8); Alkaline Phosphatase 69 U/L (38-126); Aspartate Aminotransferase 37 IU/L (17-59); BUN Creatinine Ratio 20.4 (6-22); Bilirubin Total 0.9 mg/dL (0.2-1.3); Blood Urea Nitrogen 20 mg/dL (9-20); Calcium 9.5 mg/dL (8.4-10.2); Carbon Dioxide 27 mmol/L (22-32); Chloride 104 mmol/L (98-107); Estimated Glomerular Filt Rate > 60 mL/min (>60); Globulin 3.4 g/dL (1.7-4.1); Glucose 79 mg/dL (80-110); HEMOLYSIS < 15 (0-50); Lipase 193 U/L (23-300); Potassium 4.4 mmol/L (3.4-5.1); Sodium 136 mmol/L (137-145); Total Protein 7.4 g/dL (6.3-8.2)
[2023-02-20 14:55] LABS: Appearance Urine UA CLEAR; Bilirubin Urine UA NEGATIVE (NEGATIVE); Color Urine UA YELLOW; Glucose Urine UA NEGATIVE (Negative); Ketones Urine UA NEGATIVE (NEGATIVE); Leukocyte Esterase Urine UA NEGATIVE (NEGATIVE); Nitrite Urine UA NEGATIVE (Negative); Occult Blood Urine UA NEGATIVE (Negative); Protein Urine UA NEGATIVE (Negative); Specific Gravity Urine UA 1.025 (1.000-1.035); Urobilinogen Urine UA 0.2 E.U./dL (0.2); pH Urine UA 5.5 (4.5-8.0)
[2023-02-20 15:15] LABS: Bacteria Urine None Seen; Culture Indicated Urine Cult Not Indicated; RBC Urine None Seen (0-5/HPF); Squamous Epithelial Cell Urine None Seen (0-5/HPF); WBC Urine None Seen (0-5/HPF)
== END ==
PROVIDERS: PCP Family Medicine; Referring Provider Family Medicine; Visit Provider Family Medicine
DX: R10.9 Unspecified abdominal pain (principal)
CPT/HCPCS: 36415; 80053; 81001; 83690; 85025

== ENCOUNTER → 2023-02-24 07:47 | Outpatient (CLI) | payer MEDICARE, BC, SELFPAY ==
--- NOTE | 2023-02-24 07:48 | DI.CT.S_ITS ---
PROCEDURE: CT ABDOMEN PELVIS W CON INDICATIONS: abdominal pain x 2 wks. TECHNIQUE: After the administration of oral and IV contrast, axial sections were acquired from the lung bases to the pubic symphysis. Coronal and sagittal reformats were performed. For radiation dose reduction, the following was used: automated exposure control, adjustment of mA and/or kV according to patient size. COMPARISON: None. FINDINGS: Image quality: Excellent. Lung bases: Unremarkable. Heart: No significant findings. ABDOMEN: Liver: Scattered subcentimeter hypoattenuating foci are seen in the liver, which are too small to characterize but are most likely benign cysts or hemangiomas. Gallbladder: No radiopaque gallstones or wall thickening. Biliary ducts: No biliary dilation. Pancreas: No ductal dilation. Spleen: Size is within normal limits. Adrenal Glands: No adrenal nodules. Kidneys and Ureters: No hydronephrosis. No solid mass. No complex renal cystic lesion which requires follow up. Stomach and Bowel: Normal appendix. Moderate stool is seen throughout the colon. Multiple diverticula are seen without pericolonic inflammatory changes. Small bowel loops are unremarkable. Peritoneum: No abnormal intraperitoneal fluid. No free air. Moderate aortic atherosclerotic calcifications. Ventral Wall: Tiny fat containing periumbilical hernia. Abdominal Nodes: No retroperitoneal or mesenteric adenopathy by size criteria. Vessels: Aorta and inferior vena cava are normal in size. PELVIS: Pelvic Organs: The prostate is enlarged. Bladder: Unremarkable. Pelvic Nodes: No enlarged lymph nodes. Miscellaneous: Small bilateral fat containing inguinal hernias. Bones: Degenerative changes are seen in the spine. IMPRESSION: 1. Moderate colonic stool. Recommend correlation for constipation. No acute abnormality is seen in the abdomen or pelvis. 2. Colonic diverticulosis without signs of acute diverticulitis. 3. Prostatomegaly. Approved by: Krishna Johnson M.D. on 02/24/2023 at 9:35
== END ==
PROVIDERS: PCP Family Medicine; Referring Provider Family Medicine; Visit Provider Family Medicine
DX: R10.9 Unspecified abdominal pain (principal); K57.30 Diverticulosis of large intestine without perforation or abscess without bleeding; N40.0 Benign prostatic hyperplasia without lower urinary tract symptoms
CPT/HCPCS: 74177; Q9967

== ENCOUNTER → 2023-12-31 14:13 | Outpatient (CLI) | payer MEDICARE, BC, SELFPAY ==
--- NOTE | 2023-12-31 14:14 | DI.MRI.S_ITS ---
PROCEDURE: MR LUMBAR SPINE WO CON INDICATIONS: radicular LBP x 20 days. not improving with cons tx TECHNIQUE: Noncontrast sagittal T1 spin echo and T2 fast echo, sagittal STIR, and T2 fast spin echo through the lumbar spine. In cases with scoliosis, additional coronal T2 fast spin echo may be performed. COMPARISON: [facility], CT, CT ABDOMEN PELVIS W CON, 02/24/2023, 9:09. CR, XR LUMBAR SPINE MIN 4V, 05/17/2019, 9:06. FINDINGS: Image quality: Excellent. Alignment and Curvature: There is trace retrolisthesis of L2 on L3, L3 on L4, L5 on S1. Bone Marrow: Marrow is of normal overall signal. No acute vertebral body compression fractures. Spinal Cord: Conus medullaris terminates at the L1 level. Visualized cord demonstrates normal signal and size. Paraspinous Soft Tissues: No paravertebral masses. Discs: Multilevel moderate disc desiccation most prominent L5-S1. T12-L1: No disc bulge, spinal stenosis or foraminal narrowing. L1-L2: Mild disc bulge with spinal stenosis. Kkiv-tm-cgywtnfz left and minimal right foraminal narrowing with facet and ligamentum flavum hypertrophy. L2-L3: Mild disc bulge mild spinal stenosis. Moderate bilateral foraminal narrowing, right greater than left with facet and ligamentum flavum hypertrophy. L3-L4: Mild disc bulge with mild spinal stenosis. Moderate to severe bilateral foraminal narrowing, right greater than left with facet and ligamentum flavum hypertrophy. L4-L5: Mild disc bulge with canal compression and severe spinal stenosis. There is severe narrowing through the subarticular recess on the right, moderate on the left with overall moderate bilateral foraminal narrowing. Facet and ligamentum flavum hypertrophy are present. L5-S1: Mild disc without spinal stenosis. Moderate to severe bilateral foraminal narrowing, right greater than left with facet and ligamentum flavum hypertrophy. IMPRESSION: Multilevel spinal stenosis severe with canal compression at L4-5 secondary to disc bulge with contributing effect of facet/ligamentum flavum arthropathy. Multilevel moderate to severe foraminal narrowing with facet and ligamentum flavum hypertrophy. Dictated by: Linda Mitchell M.D. on 01/01/2024 at 16:42 Approved by: Linda Mitchell M.D. on 01/01/2024 at 17:10
== END ==
LOC: MRI 14:14
PROVIDERS: PCP Family Medicine; Referring Provider Family Medicine; Visit Provider Family Medicine
DX: S39.012A Strain of muscle, fascia and tendon of lower back, initial encounter (principal); M48.061 Spinal stenosis, lumbar region without neurogenic claudication; M48.07 Spinal stenosis, lumbosacral region; M51.36 Other intervertebral disc degeneration, lumbar region; M47.816 Spondylosis without myelopathy or radiculopathy, lumbar region; M47.817 Spondylosis without myelopathy or radiculopathy, lumbosacral region; X58.XXXA Exposure to other specified factors, initial encounter
CPT/HCPCS: 72148

== ENCOUNTER → 2024-06-26 11:25 | Outpatient (CLI) | payer MEDICARE, BC, SELFPAY ==
--- NOTE | 2024-06-26 11:28 | DI.RAD.S_ITS ---
PROCEDURE: XR CHEST 2V INDICATIONS: cough x 3 mos TECHNIQUE: 2 views of the chest were acquired. COMPARISON: [facility], , XR CHEST 2V, 10/22/2021, 12:34. [facility], CR, XR CHEST 2V, 09/25/2020, 11:32. FINDINGS: Surgical changes and devices: None. Lungs and pleura: Lungs are clear. No pleural effusions or pneumothorax. Mediastinum: Aortic arch calcifications. Mediastinal contours are normal. Heart size is normal. Bones and chest wall: No suspicious bony abnormalities. Soft tissues appear unremarkable. IMPRESSION: No acute cardiothoracic process. Dictated by: Christopher Cobian M.D. on 06/27/2024 at 8:44 Approved by: Christopher Cobian M.D. on 06/27/2024 at 8:46
== END ==
PROVIDERS: PCP Family Medicine; Referring Provider Physician Assistant; Visit Provider Physician Assistant
DX: R05.9 Cough, unspecified (principal)
CPT/HCPCS: 71046

== ENCOUNTER → 2024-09-24 08:53 | Outpatient (CLI) | payer MEDICARE, BC, SELFPAY ==
[2024-09-24 10:17] LABS: Alanine Aminotransferase 27 IU/L (<50); Albumin Globulin Ratio 1.3 (1.0-2.8); Alkaline Phosphatase 63 U/L (38-126); Aspartate Aminotransferase 35 IU/L (17-59); BUN Creatinine Ratio 17.2 (6-22); Bilirubin Total 1.1 mg/dL (0.2-1.3); Blood Urea Nitrogen 16 mg/dL (9-20); Calcium 9.3 mg/dL (8.4-10.2); Carbon Dioxide 30 mmol/L (22-32); Chloride 104 mmol/L (98-107); Cholesterol 228 mg/dL (140-199); Estimated Glomerular Filt Rate > 60 mL/min (>60); Glucose 83 mg/dL (70-99); HDL Cholesterol 34 mg/dL (40-60); HEMOLYSIS < 15 (0-50); LDL Cholesterol Calculated 161 mg/dL (<100); Potassium 4.6 mmol/L (3.4-5.1); Sodium 139 mmol/L (137-145); Triglycerides 163 mg/dL (35-150)
[2024-09-24 11:12] LABS: Hep C Virus Ab w/Reflex Quant NEGATIVE s/c (NEGATIVE)
== END ==
PROVIDERS: PCP Family Medicine; Referring Provider Family Medicine; Visit Provider Family Medicine
DX: Z00.00 Encounter for general adult medical examination without abnormal findings (principal); I10 Essential (primary) hypertension; E78.2 Mixed hyperlipidemia; Z11.59 Encounter for screening for other viral diseases
CPT/HCPCS: 36415; 80053; 80061; 86803

== ENCOUNTER → 2025-01-31 08:08 | Outpatient (CLI) | payer MEDICARE, BC, SELFPAY ==
[2025-01-31 08:48] LABS: Blood Urea Nitrogen 17 mg/dL (9-20); Calcium 9.1 mg/dL (8.4-10.2); Carbon Dioxide 31 mmol/L (22-32); Chloride 103 mmol/L (98-107); Cholesterol 145 mg/dL (140-199); Estimated Glomerular Filt Rate > 60 mL/min (>60); Glucose 95 mg/dL (70-99); HDL Cholesterol 33 mg/dL (40-60); HEMOLYSIS < 15 (0-50); Potassium 4.6 mmol/L (3.4-5.1); Sodium 136 mmol/L (137-145); Triglycerides 121 mg/dL (35-150)
== END ==
PROVIDERS: PCP Family Medicine; Referring Provider Family Medicine; Visit Provider Family Medicine
DX: Z00.00 Encounter for general adult medical examination without abnormal findings (principal); I10 Essential (primary) hypertension; E78.2 Mixed hyperlipidemia
CPT/HCPCS: 36415; 80048; 80061